=== PATIENT | female | born 1950 | race Caucasian/White ===

== ENCOUNTER 2018-03-12 09:22 | Emergency (ER) | payer OTHER, MEDICARE ==
[~2018-03-12] VITALS: Ht 170.2 cm; Wt 108.5 kg
[~2018-03-12 09:22] MED LIST: ACCURETIC 101 TABLET PO; ASPIR 8181 M1 PO; FLAGYL500 MG PO; K-DUR20 MEQ PO; LIPITOR80 MG PO; MULTIVITAMIN1 EAC1 PO; OMEGA 3 1,0001 EAC1 PO; OYSTER CALCIUM500 MG PO; PREDNISONE20 MG PO; QUINAPRIL-HCTZ1 EAC2 PO; SYNTHROID125 MCG PO; THERAGRAN1 TABLET PO; VITAMIN D2000 UNI1 PO; ZOLOFT50 MG PO
[2018-03-12 10:09] LABS: BASOPHIL (%) 0.6 % (0-1); BASOPHIL COUNT 0.1 K/uL (0-0.1); EOSINOPHIL (%) 1.4 % (0-5); EOSINOPHIL COUNT 0.3 K/uL (0-0.3); HEMATOCRIT 43.2 % (36.0-46.0); HEMOGLOBIN 14.9 G/DL (11.9-15.5); IMMATURE GRANULOCYTE (%) 0.5 % (0.0-0.7); LYMPHOCYTE (%) 9.7 % (15-42); LYMPHOCYTE COUNT 1.8 K/uL (1.0-2.8); MCHC 34.5 G/DL (30.0-36.0); MCV 86.9 FL (83-99); MONOCYTE (%) 4.7 % (3-12); MONOCYTE COUNT 0.9 K/uL (0-0.8); NEUTROPHIL (%) 83.1 % (45-76); NEUTROPHIL COUNT 15.8 K/uL (1.8-6.4); RBC DIS.WIDTH-CV 13.4 % (11.8-14.6); RED BLOOD COUNT 4.97 M/uL (3.80-5.20); WHITE BLOOD COUNT 19.1 K/uL (4.1-10.2)
[2018-03-12 10:18] LABS: ALBUMIN 4.3 g/dL (3.2-4.8)
[2018-03-12 10:19] LABS: CHLORIDE 101 mEq/L (99-109); SODIUM 137 mEq/L (136-147)
[2018-03-12 10:21] LABS: GLUCOSE 135 mg/dL (70-99)
[2018-03-12 10:23] LABS: TOTAL BILIRUBIN 0.9 mg/dL (0.0-1.0)
[2018-03-12 10:24] LABS: ALKALINE PHOSPHATASE 80 IU/L (3-129)
[2018-03-12 10:25] LABS: CREATININE 0.8 mg/dL (0.6-1.3); GFR ESTIMATE (CALCULATED) > 59 mL/min/
[2018-03-12 10:26] LABS: AST (GOT) 19 IU/L (2-34); UREA NITROGEN (BUN) 10 mg/dL (9-23)
[2018-03-12 10:27] LABS: ALT (GPT) 21 IU/L (3-49)
[2018-03-12 10:28] LABS: LIPASE 20 U/L (1.0-51.0)
[2018-03-12 10:58] LABS: PLAT.SUFFICIENCY ADEQUATE; PLATELET COUNT 274 K/uL (156-360)
[2018-03-12 11:43] LABS: APPEARANCE SL.HAZY ((CLEAR)); BILIRUBIN NEGATIVE; BLOOD SMALL; COLOR STRAW ((YELLOW)); GLUCOSE (STRIP) NEGATIVE; KETONES NEGATIVE; LEUKOCYTES MODERATE; NITRITE NEGATIVE; PROTEIN (STRIP) NEGATIVE; SPECIFIC GRAVITY 1.034 (1.000-1.030); UROBILINOGEN 0.2 MG/DL (0.2-1.0)
[2018-03-12 11:49] LABS: BACTERIA RARE /HPF; EPITHELIAL CELLS 1+ /HPF; MUCUS TRACE /LPF; RED BLOOD CELLS 0-5 /HPF (0-5); WHITE BLOOD CELLS 0-5 /HPF (0-5)
[2018-03-12] MEDS ORDERED: CIPRO500 MG PO (11:50)
[2018-03-12] MEDS ORDERED: PERCOCET 5/31 TABLET PO (11:50)
[2018-03-12] MEDS ORDERED: K-DUR20 MEQ PO (11:50)
[2018-03-12] MEDS ORDERED: FLAGYL500 MG PO (11:50)
[2018-03-12 12:39] VITALS: BP 147/72
== END 2018-03-12 12:41 | disposition home or self-care (01) ==
LOC: EME 09:22
PROVIDERS: Emergency Medicine
DX: K57.92 Diverticulitis of intestine, part unspecified, without perforation or abscess without bleeding (principal); I10 Essential (primary) hypertension; E03.9 Hypothyroidism, unspecified; Z87.440 Personal history of urinary (tract) infections; Z90.49 Acquired absence of other specified parts of digestive tract; Z88.0 Allergy status to penicillin
CPT/HCPCS: 74177; 80053; 81003; 83690; 85025; 87493; 99281; 99285; J1885; J2405; J7030